=== PATIENT | female | born 1995 | race Caucasian/White ===

== ENCOUNTER 2016-12-13 19:08 | Emergency (ER) | payer OTHER, BC ==
[~2016-12-13] VITALS: Ht 170.2 cm; Wt 78.0 kg
[~2016-12-13 19:08] MED LIST: ALBU1AER9; ONDA4TAB7 SL
[2016-12-13 19:12] VITALS: TEMP 37; Ht 170.2 cm; Wt 78.0 kg
[2016-12-13 20:16] VITALS: BP 121/71; PULSE 78; O2SAT 99
--- NOTE | 2016-12-13 20:30 | EMERGENCY ROOM VISIT NOTE ---
History First contact with patient: 19:43 Chief Complaint: OTHER COMPLAINT Stated Complaint: STUCK W/DIRTY BRUSH IN [place] AREA IN SP- History of Present Illness The patient is a 21 year old female who presents to the Emergency Room with complaints of a needle stick to her left fourth finger. The patient is a [employer] employee in [employer]. She reports that she had cleaned an outside loaner instrument tray, and placed it in the instrument washer. When he came out of the washer, there was still blood on a brush that was in the tray. She took the brush back to the front side of the vacuum cleaner operator and accidentally stuck her left fourth finger. She was wearing 2 pairs of gloves. The patient currently denies any pain. The patient is [id number]. Tetanus immunization is up-to-date. The patient reports that because it was an outside loaner tray, there is no patient name or surgeon name associated with the tray. Review of Systems 10 system review was performed and was negative except for pertinent positives and negatives as indicated in history of present illness Past Medical/Surgical History Medical Problems: (1) No significant past medical history Surgical Problems: (1) No history of previous surgery Family History FH: cancer FH: diabetes mellitus FH: heart disease FH: hypertension FH: kidney disease FH: lung disease Social History Smoking Status: Never Smoker Alcohol Use: occasionally Marital Status: single Occupation Status: employed Current/Historical Medications No Active Prescriptions or Reported Meds Allergies Coded Allergies: Mustard Seed (Verified Allergy, Severe, Tongue swells, 12/13/16) Physical Exam Vital Signs Date Time Temp Pulse Resp B/P Pulse Ox O2 Delivery O2 Flow Rate FiO2 12/13/16 20:16 78 16 121/71 99 Room Air 12/13/16 19:12 37.0 73 18 135/89 97 Room Air Pain Rating (0-10): 0 Physical Exam CONSTITUTIONAL: Healthy and well nourished. Alert and oriented X 3 with positive affect. She does not appear in any acute distress. HEENT: Normocephalic, atraumatic. Pupils equal, round and reactive. NECK: Full active range of motion without discomfort. MUSCULOSKELETAL: Examination shows a small puncture wound to the tip of the left fourth finger. No ecchymosis or bleeding noted. Capillary refill is less than 2 seconds. INTEGUMENTARY: No rash or other significant dermatologic conditions noted. NEUROLOGIC: Left fourth fingertip is sensory intact. Medical Decision & Procedures ED Course Patient history and physical exam were performed. Nurse's notes were reviewed. I did discuss this case with the PEP Hotline. In addition to discussing the risks of hepatitis B, hepatitis C and HIV, it was recommended that baseline labs be drawn. They also suggested that HIV post exposure prophylaxis be offered to the patient, however her risk is extremely low given that this was not a hollow bore needle, amount of time from surgery to the current injury, and based on the fact that the instruments already had gone through the instrument washer, further reducing this risk. Suggested lab work included HbsAb, , HbAb, HIVab, and Hep B titer. This was further discussed with the patient, and she deferred HIV postexposure prophylaxis. She did sign an informed consent for baseline HIV testing. She was instructed to continue follow-up with [facility] for further management. She was instructed to intermittently apply ice as needed for any discomfort, or use of ibuprofen or Tylenol. The patient was happy with plan of care, and voiced understanding of all discharge instructions. Medical Decision Impression Primary Impression: Needlestick injury of finger of left hand Additional Impression: Work related injury Departure Information Dispostion Home / Self-Care Prescriptions No Active Prescriptions or Reported Meds Forms HOME CARE DOCUMENTATION FORM, IMPORTANT VISIT INFORMATION Patient Instructions My [facility] Additional Instructions Intermittently apply ice as needed for any discomfort. Ibuprofen or Tylenol if needed for additional pain relief. Follow-up with Employee Health for further management. Problem Qualifiers
== END 2016-12-13 20:18 | disposition home or self-care (01) ==
LOC: C.EDB 19:10 → C.EDD 20:18
DX: S60.949A Unspecified superficial injury of unspecified finger, initial encounter (principal); W27.3XXA Contact with needle (sewing), initial encounter; Z91.09 Other allergy status, other than to drugs and biological substances; Z80.9 Family history of malignant neoplasm, unspecified; Z83.3 Family history of diabetes mellitus; Z82.49 Family history of ischemic heart disease and other diseases of the circulatory system; Z84.1 Family history of disorders of kidney and ureter

== ENCOUNTER 2017-01-30 09:49 | Emergency (ER) | payer OTHER, BC ==
[~2017-01-30] VITALS: Ht 167.6 cm; Wt 79.4 kg
[2017-01-30 10:04] VITALS: TEMP 37.1; Ht 167.6 cm; Wt 79.4 kg
[2017-01-30] MEDS ORDERED: PRLSR20 PO (10:11)
--- NOTE | 2017-01-30 10:36 | EMERGENCY ROOM VISIT NOTE ---
History First contact with patient: 10:07 Chief Complaint: NEEDLE STICK Stated Complaint: NEEDLE STICK-WORK RELATED History of Present Illness The patient is a 21 year old female who presents to the Emergency Room from the operating room with complaints of "needle stick". The patient states that today around 9:30 AM, she was assisting in the operating room under the attending Dr. Amezquita, during a carotid case when she was accidentally struck in the heel aspect of the skin overlying the left fifth MCP joint by an 11 blade scalpel. She notes that the scalpel was sterile, unused and penetrated 2 layers of gloves which were also cleaned. The fingers of the gloves contained blood but not location of the wound. The patient's tetanus is up-to-date. Review of Systems A complete 10-point Review of Systems was discussed with the patient, with pertinent positives and negatives listed in the History of Present Illness. All remaining Review of Systems questions can be considered negative unless otherwise specified. Past Medical/Surgical History Medical Problems: (1) Asthma (2) Bronchitis (3) Migraines Surgical Problems: (1) No history of previous surgery Family History FH: cancer FH: diabetes mellitus FH: heart disease FH: hypertension FH: kidney disease FH: lung disease Social History Smoking Status: Never Smoker Alcohol Use: occasionally Marital Status: single Occupation Status: employed Current/Historical Medications Scheduled Omeprazole (Prilosec), 20 MG PO DAILY Allergies Coded Allergies: Mustard Seed (Verified Allergy, Severe, Tongue swells, 01/30/17) Physical Exam Vital Signs Date Time Temp Pulse Resp B/P Pulse Ox O2 Delivery O2 Flow Rate FiO2 01/30/17 10:40 66 16 127/78 99 01/30/17 10:04 37.1 69 18 128/86 97 Room Air Physical Exam VITAL SIGNS - Vital signs and nursing notes were reviewed. Afebrile, normotensive, non-tachycardic and is saturating well on room air 97%. GENERAL -21-year-old female appearing her stated age who is in no acute distress. Communicates well with provider and answers questions appropriately. SKIN - Without rashes. There is a small punctate region of erythema on the skin overlying the medial aspect of the left fifth metacarpal. The region is not bleeding. It is superficial to inspection. Medical Decision & Procedures Medical Decision Patient was seen and evaluated as above. She presents to us today from the operating room status post body fluid exposure as she was struck with an 11 blade in the left hand. The patient did consent to HIV testing, and the appropriate paperwork was filled out. After a thorough discussion with the patient, she did decline prophylaxis at this time. Because her integument was disrupted, I would declare this as a significant needle stick. I did speak with the employee health coordinator here, . Shasta Marks to at this time informed me that the patient was recently tested, and that baseline testing would not be necessary for her however the source patient will be tested. She will follow up with the patient regarding the tests. The patient's wound was cleansed, and dressed with bacitracin and a Band-Aid. She was educated upon worrisome symptoms which to return, and was discharged home in good condition. Impression Primary Impression: Employee exposure to body fluids Departure Information Dispostion Home / Self-Care Condition GOOD Referrals Aron Matta M.D. (PCP) Patient Instructions My [facility] Additional Instructions You were seen in the emergency department for a body fluid exposure. We have coordinated here care with Ms. Shasta Marks, who will be contacting you regarding the testing. Please keep the area clean, and if it is bleeding it is recommended you do not engage in surgery. Please watch for signs of infection to include redness, swelling drainage or pain if this would occur please return to emergency department. Please return to the emergency department with any new/concerning symptoms.
[2017-01-30 10:40] VITALS: BP 127/78; PULSE 66; O2SAT 99
== END 2017-01-30 10:41 | disposition home or self-care (01) ==
LOC: C.EDB 09:51 → C.EDA 10:41
DX: S60.947A Unspecified superficial injury of left little finger, initial encounter (principal); Z77.21 Contact with and (suspected) exposure to potentially hazardous body fluids; Z79.899 Other long term (current) drug therapy; W26.8XXA Contact with other sharp object(s), not elsewhere classified, initial encounter; Y99.0 Civilian activity done for income or pay; Z87.01 Personal history of pneumonia (recurrent); Z87.09 Personal history of other diseases of the respiratory system; Z82.49 Family history of ischemic heart disease and other diseases of the circulatory system; Z83.3 Family history of diabetes mellitus; Z83.6 Family history of other diseases of the respiratory system; Z84.1 Family history of disorders of kidney and ureter

== ENCOUNTER 2017-08-31 16:56 | Emergency (ER) | payer BC, OTHER ==
[~2017-08-31] VITALS: Ht 170.2 cm; Wt 79.5 kg
[~2017-08-31 16:56] MED LIST changes: -ALBU1AER9; -ONDA4TAB7 SL; +PRLSR20 PO
[2017-08-31 17:03] VITALS: Ht 170.2 cm; Wt 79.5 kg
[2017-08-31] MEDS ORDERED: SODIUM CHLORIDE 0.9% 1000ML 1,000 ML IV ONE (17:45)
--- NOTE | 2017-08-31 17:45 | EMERGENCY ROOM VISIT NOTE ---
History First contact with patient: 17:26 Chief Complaint: ABDOMINAL PAIN Stated Complaint: RIGHT UPPER QUAD PAIN;NAUSEA AND VOMITING Nursing Triage Summary: Pt reports RUQ pain x 1 week, worse after eating. N/V. Pt states, "It just feels like my stomach is going to explode. After I throw up I feel better." History of Present Illness The patient is a 22 year old female who presents to the Emergency Room with complaints of right upper quadrant abdominal pain intermittently over the last week. It is worse with eating. She is also had nausea and vomiting. She rates the pain an 8/10. She has not taken anything for the pain. Denies any fever or chills. Bowel movements are reportedly normal. Review of Systems 10 system review performed and negative unless noted in HPI or below Past Medical/Surgical History Medical Problems: (1) Asthma (2) Bronchitis (3) Migraines Surgical Problems: (1) No history of previous surgery Family History FH: cancer FH: diabetes mellitus FH: heart disease FH: hypertension FH: kidney disease FH: lung disease Social History Smoking Status: Never Smoker Alcohol Use: occasionally Marital Status: single Occupation Status: employed Current/Historical Medications Scheduled Omeprazole (Prilosec), 40 MG PO DAILY Ondasetron Odt (Zofran Odt), 4 MG SL Q6H Scheduled PRN Hydrocodone/Acetaminophen 5MG/325MG ([place] 5MG/325MG), 1-2 TABLET PO Q4H PRN for Pain Physical Exam Vital Signs Date Time Temp Pulse Resp B/P (MAP) Pulse Ox O2 Delivery O2 Flow Rate FiO2 09/01/17 00:46 68 16 105/62 97 Room Air 08/31/17 23:06 37.2 60 16 111/70 98 Room Air 08/31/17 22:44 55 16 111/68 98 Room Air 08/31/17 21:27 63 18 129/74 98 Room Air 08/31/17 19:11 76 18 129/76 100 Room Air 08/31/17 17:03 36.4 110 18 129/92 98 Room Air Physical Exam VITALS: Vitals are noted on the nurse's note and reviewed by myself. Vital signs stable. GENERAL: 22-year-old female, in no acute distress, nondiaphoretic, well- developed well-nourished. SKIN: The skin was without rashes, erythema, edema, or bruising. HEAD: Normocephalic atraumatic. MOUTH: Mucous membranes dry. NECK: Supple without nuchal rigidity. No lymphadenopathy. Cervical spine is nontender. No JVD. HEART: Regular rate and rhythm without murmurs gallops or rubs. LUNGS: Clear to auscultation bilaterally without wheezes, rales or rhonchi. No accessory muscle use. ABDOMEN: Positive bowel sounds x 4.Soft, tenderness to palpation in the right upper quadrant without organomegaly. No guarding or rebound tenderness. MUSCULOSKELETAL: No muscle atrophy, erythema, or edema noted.Strength 5/5 throughout. NEURO: Patient was alert and oriented to person place and time. Normal sensation to touch. No focal neurological deficits. Medical Decision & Procedures ER Provider Diagnostic Interpretation: CT abdomen and pelvis with contrast IMPRESSION: 1. Normal CT appearance of the appendix. 2. Large left ovarian cyst measuring up to 5.4 cm is noted in addition to area of mixed attenuation within the distribution of the right adnexum, inferior to the cecum with mild free pelvic fluid which may reflect recently ruptured ovarian cyst. Further evaluation with pelvic ultrasound recommended. 3. Multiple loops of jejunum demonstrate wall thickening and probable fold thickening with surrounding inflammatory stranding and combing of the adjacent mesenteric vasculature suggesting infectious or inflammatory enteritis. 4. No bowel obstruction. Electronically signed by: Allan Aviles M.D. 08/31/2017 10:27 PM Dictated Date/Time: 08/31/2017 10:16 PM The status of this report is Signed. Draft = Not yet reviewed or approved by Radiologist. Signed = Reviewed and approved by Radiologist. Right upper quadrant abdominal ultrasound Patient Name: MING LATHAM Unit Number: [id number] Dictated: 08/31/171905 Transcribed: 08/31/171905 ANDREW Printed Date/Time: [~ rep prt dt]/[~ rep prt tm] [~ rep ct labl] - [~ rep ct ivnm] [facility] [place] [address] Dictated: 08/31/171905 Transcribed: 08/31/171905 ANDREW Printed Date/Time: [~ rep prt dt]/[~ rep prt tm] [~ rep ct labl] - [~ rep ct ivnm] IMPRESSION: No significant abnormality identified within the right upper quadrant. Electronically signed by: Hugo Pereyra M.D. 08/31/2017 7:07 PM Dictated Date/Time: 08/31/2017 7:06 PM The status of this report is Signed. Draft = Not yet reviewed or approved by Radiologist. Signed = Reviewed and approved by Radiologist. <AttendingPhy></AttendingPhy> <FamilyPhy>No Doctor, Assigned</FamilyPhy> < PrimaryPhy>No Doctor, Assigned</PrimaryPhy> <UnitNumber>[id number]</UnitNumber> <VisitNumber>[id number]</VisitNumber> <PatientName>MING LATHAM</PatientName > <DateOfBirth>1995</DateOfBirth> <Location>C.EDB</Location> <ServiceDate> 08/31/17</ServiceDate> <MNE>ESINDI</MNE> <OrderingPhy>Michelle Michaels PA-C</ OrderingPhy> <OrderingPhyMNE>f rep ord dr lobato</OrderingPhyMNE> <DictatingPhyMNE> f rep dict dr lobato</DictatingPhyMNE> <CCListMNE>f rep ct mne</CCListMNE> < AdmittingPhyMNE>f pt admit dr lobato</AdmittingPhyMNE> <AttendingPhyMNE>f pt attend dr lobato</AttendingPhyMNE> <ConsultingPhyMNE>f pt consult dr lobato</ConsultingPhyMNE> <FamilyPhyMNE>f pt fam dr lobato</FamilyPhyMNE> <OtherPhyMNE>f pt other dr lobato</OtherPhyMNE> < PrimaryPhyMNE>f pt prim care dr lobato</PrimaryPhyMNE> <ReferringPhyMNE>f pt referring dr lobaot</ReferringPhyMNE> Laboratory Results 08/31/17 18:10 Red Blood Count 5.26, Mean Corpuscular Volume 86.3, Mean Corpuscular Hemoglobin 30.4, Mean Corpuscular Hemoglobin Concent 35.2, Mean Platelet Volume 10.1, Neutrophils (%) (Auto) 84.7, Lymphocytes (%) (Auto) 9.6, Monocytes (%) (Auto) 5.2, Eosinophils (%) (Auto) 0.2, Basophils (%) (Auto) 0.1, Neutrophils # (Auto) 11.33, Lymphocytes # (Auto) 1.29, Monocytes # (Auto) 0.69, Eosinophils # (Auto) 0.03, Basophils # (Auto) 0.01 08/31/17 18:10 Test 08/31/17 18:00 08/31/17 18:10 Urine Test NEG (NEG) White Blood Count 13.38 K/uL (4.8-10.8) Red Blood Count 5.26 M/uL (4.2-5.4) Hemoglobin 16.0 g/dL (12.0-16.0) Hematocrit 45.4 % (37-47) Mean Corpuscular Volume 86.3 fL (80-100) Mean Corpuscular Hemoglobin 30.4 pg (25-34) Mean Corpuscular Hemoglobin Concent 35.2 g/dl (32-36) Platelet Count 235 K/uL (130-400) Mean Platelet Volume 10.1 fL (7.4-10.4) Neutrophils (%) (Auto) 84.7 % Lymphocytes (%) (Auto) 9.6 % Monocytes (%) (Auto) 5.2 % Eosinophils (%) (Auto) 0.2 % Basophils (%) (Auto) 0.1 % Neutrophils # (Auto) 11.33 K/uL (1.4-6.5) Lymphocytes # (Auto) 1.29 K/uL (1.2-3.4) Monocytes # (Auto) 0.69 K/uL (0.11-0.59) Eosinophils # (Auto) 0.03 K/uL (0-0.5) Basophils # (Auto) 0.01 K/uL (0-0.2) RDW Standard Deviation 37.6 fL (36.4-46.3) RDW Coefficient of Variation 11.9 % (11.5-14.5) Immature Granulocyte % (Auto) 0.2 % Immature Granulocyte # (Auto) 0.03 K/uL (0.00-0.02) Anion Gap 4.0 mmol/L (3-11) Est Creatinine Clear Calc Drug Dose 110.5 ml/min Estimated GFR () 110.4 Estimated GFR (Non- 95.2 BUN/Creatinine Ratio 12.3 (10-20) Calcium Level 8.8 mg/dl (8.5-10.1) Total Bilirubin 0.4 mg/dl (0.2-1) Aspartate Amino Transf (AST/SGOT) 11 U/L (15-37) Alanine Aminotransferase (ALT/SGPT) 22 U/L (12-78) Alkaline Phosphatase 44 U/L (45-117) Total Protein 7.2 gm/dl (6.4-8.2) Albumin 3.8 gm/dl (3.4-5.0) Globulin 3.4 gm/dl (2.5-4.0) Albumin/Globulin Ratio 1.1 (0.9-2) Lipase 122 U/L (73-393) Medications Administered Medications (Trade) Dose Ordered Sig/Bijla Route Start Time Stop Time Status Last Admin Dose Admin Sodium Chloride 1,000 ml @ 999 mls/hr Q1H1M ONCE IV 08/31/17 17:45 08/31/17 18:45 DC 08/31/17 18:12 999 MLS/HR Ondansetron HCl (Zofran Inj) 4 mg STK-MED ONCE .ROUTE 08/31/17 20:03 08/31/17 20:04 DC 08/31/17 20:04 4 MG Lidocaine HCl (Viscous Lidocaine 2% Soln) 10 ml NOW STAT PO 09/01/17 01:04 09/01/17 01:05 DC 09/01/17 01:12 10 ML Al Hydroxide/Mg Hydroxide (Maalox Susp) 30 ml NOW STAT PO 09/01/17 01:04 09/01/17 01:05 DC 09/01/17 01:12 30 ML ED Course Patient was seen and examined Vital signs including blood pressure were reviewed medications list was verified with patient Labs were obtained, and a saline lock was established The patient declined pain medication She was hydrated with 1 L of normal saline Imaging was performed and reviewed The patient was reassessed. We discussed the findings. She was understanding. A CT abd/pelvis was reviewed The patient was reassessed. Her nausea was improved. We discussed the results of her workup. A pelvic ultrasound was ordered. This case was signed out to nia Herrera PA-C a change of shift. Please see her note for further details of the pelvic ultrasound. Medical Decision DIFFERENTIAL DIAGNOSIS: Gastroenteritis, Hepatitis, cholecystitis, cholangitis, biliary colic, pancreatitis, appendicitis, inguinal hernia, nephrolithiasis, inflammatory bowel disease, mesenteric adenitis, peptic ulcer disease, GERD, gastritis, pancreatitis,, bowel obstruction, splenic infarct, diverticulitis, mesenteric ischemia, metabolic, peritonitis, among others. This patient is a 22-year-old female that presents emergency department with right upper quadrant pain and vomiting worse with eating. Suspicions were high for gallbladder disease. Her labs reveal mild leukocytosis. LFTs and lipase are within normal limits. An ultrasound of the gallbladder was performed. No stones or signs of cholecystitis were noted. CT of the abdomen and pelvis was performed. There is mild inflammation of the jejunum suspicious for enteritis. They also noted a fairly large right ovarian cyst. A pelvic ultrasound was recommended. This was ordered at the change of shift. Her ovarian cysts very well could be causing her abdominal pain and nausea. For further details, please see Dora Herrera's MARIA note of the pelvic ultrasound results Impression Primary Impression: Right ovarian cyst Departure Information Dispostion Home / Self-Care Condition GOOD Prescriptions Omeprazole (PRILOSEC) 40 Mg Cap 40 MG PO DAILY for 14 Days, #14 CAP Prov: Petrona Herrera .MARIA 09/01/17 Hydrocodone/Acetaminophen 5MG/325MG ([place] 5MG/325MG) Tab 1-2 TABLET PO Q4H Y for Pain, #15 TAB For Initial Treatment Prov: Michelle Michaels PA-C 08/31/17 Ondasetron Odt (ZOFRAN ODT) 4 Mg Tab 4 MG SL Q6H for Nausea, #20 TAB Prov: Michelle Michaels PA-C 08/31/17 Referrals Cesar Schultz M.D. (PCP) Patient Instructions My [facility] Additional Instructions You were evaluated in the emergency department for vomiting and abdominal pain. It appears that you have a large right ovarian cyst. You also may have a GI illness. Please stick to a bland diet. Crackers, john naina, broths for this evening. Increase your fluid intake over the next several days Zofran every 6 hours as needed for nausea [place] one to 2 tabs every 4 hours as needed for abdominal pain. Please take a stool softener while taking this medication as it may cause constipation. It is very important for you to follow-up with your primary care physician and [employer]. Please don't hesitate to return to the emergency department with any new, worsening or concerning symptoms
[2017-08-31 18:41] LABS: BASO % 0.1 %; BASO ABS # 0.01 K/uL (0-0.2); COMPLETE YES; EOS % 0.2 %; HEMATOCRIT 45.4 % (37-47); IG% 0.2 %; LYMPH % 9.6 %; LYMPH ABS # 1.29 K/uL (1.2-3.4); MEAN CELL VOLUME 86.3 fL (80-100); MEAN CORPUSCULAR HEMOGLOBIN 30.4 pg (25-34); MEAN CORPUSCULAR HGB CONC 35.2 g/dl (32-36); MEAN PLATELET VOLUME 10.1 fL (7.4-10.4); MONO % 5.2 %; NEUT % 84.7 %; PLATELET COUNT 235 K/uL (130-400); RED BLOOD COUNT 5.26 M/uL (4.2-5.4); WHITE BLOOD COUNT 13.38 K/uL (4.8-10.8)
[2017-08-31 18:55] LABS: BUN/CREATININE RATIO 12.3 (10-20); CALCIUM 8.8 mg/dl (8.5-10.1); CREATININE 0.86 mg/dl (0.60-1.20); POTASSIUM 3.8 mmol/L (3.5-5.1)
[2017-08-31 18:57] LABS: ALB/GLOB RATIO 1.1 (0.9-2)
--- NOTE | 2017-08-31 19:08 | DIAGNOSTIC IMAGING REPORT ---
ABDOMINAL ULTRASOUND, RIGHT UPPER QUADRANT HISTORY: Right upper quadrant pain after eating. Vomiting. COMPARISON: Right upper quadrant ultrasound and CT of the abdomen and pelvis July 31, 2012. FINDINGS: Liver is sonographically normal. There is no biliary ductal dilatation. The common bile duct measures 5 mm in caliber. The pancreas is within normal limits by sonography. The gallbladder is normal. There are no gallstones. No right hydronephrosis is present. IMPRESSION: No significant abnormality identified within the right upper quadrant. Electronically signed by: Hugo Pereyra M.D. 08/31/2017 7:07 PM Dictated Date/Time: 08/31/2017 7:06 PM
[2017-08-31] MEDS ORDERED: OPTIRAY 320 IV PRN (19:45)
[2017-08-31] MEDS ORDERED: ONDANSETRON INJ 2 MG/ML 2 ML VIAL ONE (20:03)
--- NOTE | 2017-08-31 22:28 | DIAGNOSTIC IMAGING REPORT ---
ABDOMEN AND PELVIS CT WITH IV AND ORAL CONTRAST CT DOSE: 339.04 mGy.cm HISTORY: Acute right upper quadrant abdominal pain RUQ and epigastric pain vomiting leukocytosis TECHNIQUE: Multiaxial CT images of the abdomen and pelvis were performed following the use of intravenous and oral contrast. A dose lowering technique was utilized adhering to the principles of ALARA. COMPARISON STUDY: Right upper quadrant ultrasound of same day, CT abdomen and pelvis 07/31/2012. FINDINGS: Lung bases are clear. No pneumatosis or pneumoperitoneum. Imaged inferior cardiac chambers are unremarkable. There is a mucosal fold of the mid gallbladder lumen which is mildly contracted. Liver, spleen, pancreas and adrenal glands are within normal limits. Kidneys, ureters and urinary bladder are within normal limits. Uterus is within normal limits. Cystic lesion of the left adnexum measures 5.4 x 4.1 x 4.8 cm. Aorta is normal in course and caliber. No bulky adenopathy. No bowel junction. Multiple loops of jejunum demonstrate wall thickening with surrounding inflammatory stranding and also possibly fold thickening. The appendix is contrast-filled and appears normal within the right lower quadrant. The ileocecal valve is noted on image 266 series 3 and the terminal ileum appears normal. There is a mixed attenuating structure of the right lower quadrant, 3.6 x 2.8 cm which is inferior to the cecum and appears to be contiguous with the right adnexum. Mild free pelvic fluid is noted within the pelvis dependently and also adjacent to the pericolic gutters. Soft tissues are unremarkable. The bones appear intact. There is mild nonspecific sclerosis without definite erosive changes identified within the bilateral SI joints. IMPRESSION: 1. Normal CT appearance of the appendix. 2. Large left ovarian cyst measuring up to 5.4 cm is noted in addition to area of mixed attenuation within the distribution of the right adnexum, inferior to the cecum with mild free pelvic fluid which may reflect recently ruptured ovarian cyst. Further evaluation with pelvic ultrasound recommended. 3. Multiple loops of jejunum demonstrate wall thickening and probable fold thickening with surrounding inflammatory stranding and combing of the adjacent mesenteric vasculature suggesting infectious or inflammatory enteritis. 4. No bowel obstruction. Electronically signed by: Allan Aviles M.D. 08/31/2017 10:27 PM Dictated Date/Time: 08/31/2017 10:16 PM
[2017-08-31 23:06] VITALS: TEMP 37.2
[2017-08-31] MEDS ORDERED: HYDR-5688 PO (23:10)
[2017-08-31] MEDS ORDERED: ONDA4TAB10 SL (23:10)
[2017-08-31] MEDS ORDERED: NORCO 5/325MG HOME PACK PO ONE (23:15)
[2017-09-01 00:46] VITALS: BP 105/62; PULSE 68; O2SAT 97
[2017-09-01] MEDS ORDERED: ALUMINUM/MAGNESIUM SUSP 30 ML UDC PO STA (01:04)
[2017-09-01] MEDS ORDERED: LIDOCAINE HCL 2% VISC SOLN 20 ML UDC PO STA (01:04)
[2017-09-01] MEDS ORDERED: OMEP40CA41 PO (01:10)
--- NOTE | 2017-09-01 01:14 | EMERGENCY ROOM VISIT NOTE ---
ED Visit Note This patient was signed out to me by Michelle Michaels PA-C, pending ultrasound and reevaluation in stable condition. Please see her dictation for further admission regarding her H&P. This 22-year-old female presents to the ER complaining of a few weeks of epigastric discomfort. She's had a history of reflux in the past. Patient states her symptoms are worse after eating and laying down. Patient states tonight she had hot wings and the pain returned. Patient had ultrasound was negative for cholecystitis. CT scann was concerning for possible ovarian cyst so ultrasound was ordered. Ultrasound was concerning for ovarian cyst on each ovary. Blood flow is present to both ovaries. Patient was advised to follow- up with [facility] in the next few days and repeat pelvic ultrasound in 6 weeks for resolution of cyst. Patient had no lower abdominal pain. She is well- appearing. She did not have acute abdomen on exam. Patient was also advised to take Prilosec for the next 2 weeks and take Maalox or Zantac for break of symptoms. She is advised to follow back up with her GI doctor if symptoms persist or here in the ER sooner for abdominal pain, chest pain, black or blood in the stool, worsening signs or symptoms or as needed. #1 epigastric abdominal pain #2 ovarian cysts Discharge: Patient was discharged home in stable condition with family driving. Patient is advised to follow-up with [facility] and family care within the next few days. Discharge instructions as below. Current/Historical Medications Scheduled Omeprazole (Prilosec), 40 MG PO DAILY Ondasetron Odt (Zofran Odt), 4 MG SL Q6H Scheduled PRN Hydrocodone/Acetaminophen 5MG/325MG ([place] 5MG/325MG), 1-2 TABLET PO Q4H PRN for Pain Allergies Coded Allergies: Mustard Seed (Verified Allergy, Severe, Tongue swells, 01/30/17) Vital Signs Date Time Temp Pulse Resp B/P (MAP) Pulse Ox O2 Delivery O2 Flow Rate FiO2 09/01/17 00:46 68 16 105/62 97 Room Air 08/31/17 23:06 37.2 60 16 111/70 98 Room Air 08/31/17 22:44 55 16 111/68 98 Room Air 08/31/17 21:27 63 18 129/74 98 Room Air 08/31/17 19:11 76 18 129/76 100 Room Air 08/31/17 17:03 36.4 110 18 129/92 98 Room Air Laboratory Results 08/31/17 18:10 Red Blood Count 5.26, Mean Corpuscular Volume 86.3, Mean Corpuscular Hemoglobin 30.4, Mean Corpuscular Hemoglobin Concent 35.2, Mean Platelet Volume 10.1, Neutrophils (%) (Auto) 84.7, Lymphocytes (%) (Auto) 9.6, Monocytes (%) (Auto) 5.2, Eosinophils (%) (Auto) 0.2, Basophils (%) (Auto) 0.1, Neutrophils # (Auto) 11.33, Lymphocytes # (Auto) 1.29, Monocytes # (Auto) 0.69, Eosinophils # (Auto) 0.03, Basophils # (Auto) 0.01 08/31/17 18:10 Test 08/31/17 18:00 08/31/17 18:10 Urine Test NEG (NEG) White Blood Count 13.38 K/uL (4.8-10.8) Red Blood Count 5.26 M/uL (4.2-5.4) Hemoglobin 16.0 g/dL (12.0-16.0) Hematocrit 45.4 % (37-47) Mean Corpuscular Volume 86.3 fL (80-100) Mean Corpuscular Hemoglobin 30.4 pg (25-34) Mean Corpuscular Hemoglobin Concent 35.2 g/dl (32-36) Platelet Count 235 K/uL (130-400) Mean Platelet Volume 10.1 fL (7.4-10.4) Neutrophils (%) (Auto) 84.7 % Lymphocytes (%) (Auto) 9.6 % Monocytes (%) (Auto) 5.2 % Eosinophils (%) (Auto) 0.2 % Basophils (%) (Auto) 0.1 % Neutrophils # (Auto) 11.33 K/uL (1.4-6.5) Lymphocytes # (Auto) 1.29 K/uL (1.2-3.4) Monocytes # (Auto) 0.69 K/uL (0.11-0.59) Eosinophils # (Auto) 0.03 K/uL (0-0.5) Basophils # (Auto) 0.01 K/uL (0-0.2) RDW Standard Deviation 37.6 fL (36.4-46.3) RDW Coefficient of Variation 11.9 % (11.5-14.5) Immature Granulocyte % (Auto) 0.2 % Immature Granulocyte # (Auto) 0.03 K/uL (0.00-0.02) Anion Gap 4.0 mmol/L (3-11) Est Creatinine Clear Calc Drug Dose 110.5 ml/min Estimated GFR () 110.4 Estimated GFR (Non- 95.2 BUN/Creatinine Ratio 12.3 (10-20) Calcium Level 8.8 mg/dl (8.5-10.1) Total Bilirubin 0.4 mg/dl (0.2-1) Aspartate Amino Transf (AST/SGOT) 11 U/L (15-37) Alanine Aminotransferase (ALT/SGPT) 22 U/L (12-78) Alkaline Phosphatase 44 U/L (45-117) Total Protein 7.2 gm/dl (6.4-8.2) Albumin 3.8 gm/dl (3.4-5.0) Globulin 3.4 gm/dl (2.5-4.0) Albumin/Globulin Ratio 1.1 (0.9-2) Lipase 122 U/L (73-393) Medications Administered Medications (Trade) Dose Ordered Sig/Bijal Route Start Time Stop Time Status Last Admin Dose Admin Sodium Chloride 1,000 ml @ 999 mls/hr Q1H1M ONCE IV 08/31/17 17:45 08/31/17 18:45 DC 08/31/17 18:12 999 MLS/HR Ondansetron HCl (Zofran Inj) 4 mg STK-MED ONCE .ROUTE 08/31/17 20:03 08/31/17 20:04 DC 08/31/17 20:04 4 MG Departure Information Impression Primary Impression: Abdominal discomfort, epigastric Additional Impression: Ovarian cyst Dispostion Home / Self-Care Condition GOOD Prescriptions Omeprazole (PRILOSEC) 40 Mg Cap 40 MG PO DAILY for 14 Days, #14 CAP Prov: Petrona Herrera PA-C 09/01/17 Hydrocodone/Acetaminophen 5MG/325MG ([place] 5MG/325MG) Tab 1-2 TABLET PO Q4H Y for Pain, #15 TAB For Initial Treatment Prov: Michelle Michaels PA-C 08/31/17 Ondasetron Odt (ZOFRAN ODT) 4 Mg Tab 4 MG SL Q6H for Nausea, #20 TAB Prov: Michelle Michaels PA-C 08/31/17 Referrals No Doctor, Assigned (PCP) Marcela Robertson M.D. Forms HOME CARE DOCUMENTATION FORM, IMPORTANT VISIT INFORMATION Patient Instructions GERD, Cysts Ovarian, My [facility] Additional Instructions Abdominal pain: Prilosec 40 m tablet daily for next 2 weeks. Take this on an empty stomach. Try Maalox or Zantac for breakthrough symptoms for reflux. Avoid large meals. Avoid acidic foods. Rest and drink plenty of fluids as tolerated. Continue current medications. Avoid strenuous activities and anything that worsens your pain. Resume normal activities once your symptoms resolve. Return to the ER immediately for worsening or persistent chest pain, abdominal pain, black or blood in your stools, vomiting, fevers, chest pains, difficulty breathing, worsening of your condition, or as needed. Follow up with your primary physician in 2-3 days for a recheck of your current condition. If your symptoms persist after 2 weeks of the Prilosec then follow- up with GI for possible EGD. Ovarian cyst: DO NOT drive, drink alcohol, operate machinery, or perform dangerous activities today. You were given medications in the ER that can affect your ability to safely function or operate a vehicle. Recommend repeat pelvic ultrasound in 6 weeks for resolution of cyst. Rest. Stay well hydrated. No strenuous activity until symptoms resolve. Ibuprofen(Motrin, Advil) may be used for fever or pain. Use 600mg every six hours as needed. Take with food. Avoid using more than 2400mg in a 24 hour period. Do not use 2400mg per day for more than three consecutive days without physician direction. Prolonged inappropriate use can lead to stomach upset or ulcers. (AND/OR) Acetaminophen(Tylenol) may be used for fever or pain. Use 1000mg every six hours as needed. Avoid using more than 3000mg in a 24 hour period. Rest and drink plenty of fluids as tolerated. Continue current medications. Return to the ER immediately for severe pain, heavy vaginal bleeding, abdominal pain, vomiting, fevers, chest pains, difficulty breathing, worsening of your condition, or as needed. Follow up with your [facility] in 2-3 days for a recheck of your current condition. Problem Qualifiers
--- NOTE | 2017-09-01 07:40 | DIAGNOSTIC IMAGING REPORT ---
PELVIC ULTRASOUND CLINICAL HISTORY: Ovarian cyst. Free pelvic fluid. COMPARISON STUDY: CT of the abdomen and pelvis August 31, 2017. TECHNIQUE: Transabdominal sonography of the pelvis was performed. Transvaginal imaging was deferred in this patient. FINDINGS: Uterus measures 8.3 x 2.5 x 4.2 cm. Endometrium measures 5 mm in thickness. The right ovary measures 3.3 x 2.4 x 3.5 cm. There is a small amount of adjacent fluid. A complex 1.5 cm hypoechoic right ovarian lesion could reflect a hemorrhagic cyst. The left ovary measures 8 x 4 x 6.1 cm and contains a 5.1 cm anechoic lesion consistent with a cyst. Color flow is identified within each ovary. IMPRESSION: 1. 5.1 cm anechoic left ovarian lesion suggestive of a cyst. A follow-up pelvic ultrasound in 6 weeks to ensure resolution is recommended. 2. 1.5 cm hypoechoic right ovarian lesion which could reflect a hemorrhagic/corpus luteal cyst. Small amount of adjacent free fluid. 3. No sonographic evidence of ovarian torsion. Electronically signed by: Hugo Pereyra M.D. 09/01/2017 7:39 AM Dictated Date/Time: 09/01/2017 7:35 AM
== END 2017-09-01 01:15 | disposition home or self-care (01) ==
LOC: C.EDB 16:57
DX: N83.201 Unspecified ovarian cyst, right side (principal); R10.13 Epigastric pain; J45.909 Unspecified asthma, uncomplicated; K21.9 Gastro-esophageal reflux disease without esophagitis; G43.909 Migraine, unspecified, not intractable, without status migrainosus; Z80.9 Family history of malignant neoplasm, unspecified; Z83.3 Family history of diabetes mellitus; Z82.49 Family history of ischemic heart disease and other diseases of the circulatory system; Z84.1 Family history of disorders of kidney and ureter; Z83.6 Family history of other diseases of the respiratory system; Z79.899 Other long term (current) drug therapy

== ENCOUNTER → 2017-11-14 | Outpatient (CLI) | payer OTHER ==
[~2017-11-14] MED LIST changes: +HYDR-5688 PO; +ONDA4TAB10 SL; -PRLSR20 PO
== END | disposition home or self-care (01) ==
LOC: C.LABSPEC 14:05
PROVIDERS: ATTEND Obstetrics & Gynecology
DX: B37.3 Candidiasis of vulva and vagina (principal)

== ENCOUNTER → 2018-05-16 | Outpatient (CLI) | payer OTHER | END | disposition home or self-care (01) | LOC: C.LAB 11:50 | PROVIDERS: ATTEND Internal Medicine | DX: Z00.00 Encounter for general adult medical examination without abnormal findings (principal); Z13.1 Encounter for screening for diabetes mellitus ==